=== PATIENT | female | born 1940 | race Caucasian/White ===

== ENCOUNTER 2017-01-06 10:25 | Day surgery (SDC) | payer MEDICARE, OTHER ==
[~2017-01-06] VITALS: Ht 157.5 cm; Wt 90.7 kg
[~2017-01-06 10:25] MED LIST: ALPR0.254 PO; ASPI-973 PO; GABA-502 PO; GEMF600T3 PO; LOSA100T29 PO; OMEG10005 PO; SERT100T9 PO; TRAM50TA2 PO; TRAZ-115 PO
[2017-01-06] MEDS ORDERED: Iohexol 240 mg/mL 10 mL Inj ONE (10:26)
[2017-01-06] MEDS ORDERED: MethylprednisoLONE Depot 80 mg/mL Inj ONE (10:26)
[2017-01-06 10:52] VITALS: BP 158/80; PULSE 55; RESP 12; O2SAT 100
--- NOTE | 2017-01-06 11:32 | PCM.PROC ---
Procedure Note Date of Service: Jan 06, 2017 Pre Procedure Diagnosis: PROCEDURE: Lumbar Interlaminar epidural steroid injection. L4-L5 ASA / ANTI-COAGULATION . No asa x 7 days. PRE-PROCEDURE DIAGNOSIS: Lumbar spinal stenosis/radiculopathy POST-PROCEDURE DIAGNOSIS: same INDICATION: 76-year-old patient referred by Dr. Nix for L4-L5 interlaminar epidural steroid injection for lumbar spinal stenosis/radiculopathy PERFORMED BY: Mynor Carmen MD DESCRIPTION OF PROCEDURE: Patient was met in the holding area. Consent was signed, site was confirmed and all questions were answered. Patient was taken to the procedure suite and placed prone on the procedure table. Area was prepped and draped in sterile fashion. Local anesthesia with 1% lidocaine was injected. An 18-gauge Touhy needle was advanced toward the interlaminar space using fluoroscopic guidance after optimizing the AP view. A loss of resistance syringe was attached as we approached the epidural space in the lateral view. After [id number] was obtained, radioopaque contrast was injected under live fluro which confirmed epidural placement without intravascular uptake. Then , 80 mg depomedrol was injected without difficulty. ANESTHESIA: Local. EBL: None. No Blood Products Used COMPLICATIONS: None SPECIMENS: None POST-PROCEDURE DISPOSITION: Patient was returned to the holding area in stable condition. They were discharged home when all discharge criteria were met. Evaluation/Physical Exam before discharge revealed: DISCHARGE MEDICATIONS: FOLLOW UP: Followup with me in 6 weeks Mynor Carmen MD * Pain Management * Anesthesiology .ED: Y: Patient given care and follow up instructions Mynor Carmen MD Jan 06, 2017 11:32
== END 2017-01-06 23:59 | disposition home or self-care (01) ==
LOC: END 10:25
PROVIDERS: ATTEND Anesthesiology Pain Medicine
DX: M48.06 Spinal stenosis, lumbar region (principal)
CPT/HCPCS: 62323; J1040